=== PATIENT | male | born 1995 | race African-American/Black ===

== ENCOUNTER 2017-05-24 13:58 | Emergency (ER) | payer SELFPAY ==
[2017-05-24 14:00] VITALS: BP 130/84; PULSE 82; RESP 20; TEMP 98.5; O2SAT 97
[2017-05-24] MEDS ORDERED: CLINDAMYCIN PHOS 600 MG/4 ML VIAL IM ONE (14:45)
--- NOTE | 2017-05-24 14:45 | PD ---
HPI Chief Complaint: Oral / Dental Pain or Problem Time Seen by Provider: 14:33 Travel History International Travel<30 days: No Contact w/Intl Traveler<30days: No Traveled to known affect area: No History of Present Illness HPI C/O LEFT BOTTOM TOOTHACHE , 04/20, ONSET 2DAYS AGO, WORSENING OVER TIME, DENIES ANY ALLEVIATING/AGGRAVATING FACTORS PFSH Past Medical History Asthma: Yes Inguinal Hernia: Yes Influenza Vaccination: No Past Surgical History Abdominal Surgery: Yes Genitourinary Surgery: Yes (INGUINAL HERNIA SURGERY) Other Surgery: Yes (JAW SURGERY) Social History Alcohol Use: Yes (OCCASIONALLY) Tobacco Use: Yes (BLACK & MILDS) Substance Use: No Allergies-Medications (Allergen,Severity, Reaction): Coded Allergies: No Known Allergies (Unverified , 05/24/17) Reported Meds & Prescriptions Reported Meds & Active Scripts Active No Active Prescriptions or Reported Medications Review of Systems Except as stated in HPI: all other systems reviewed are Neg HENT: Positive: Dental Difficulties Physical Exam Narrative GENERAL: SKIN: Warm and dry. HEAD: Atraumatic. Normocephalic. EYES: Pupils equal and round. No scleral icterus. No injection or drainage. ENT: No nasal bleeding or discharge. Mucous membranes pink and moist. LEFT MANDIBULAR MOLAR2 INFECTION WITH EARLY EXTENSION TO LEFT CHEEK NECK: Trachea midline. No JVD. CARDIOVASCULAR: Regular rate and rhythm. RESPIRATORY: No accessory muscle use. Clear to auscultation. Breath sounds equal bilaterally. GASTROINTESTINAL: Abdomen soft, non-tender, nondistended. Hepatic and splenic margins not palpable. MUSCULOSKELETAL: Extremities without clubbing, cyanosis, or edema. No obvious deformities. NEUROLOGICAL: Awake and alert. No obvious cranial nerve deficits. Motor grossly within normal limits. Five out of 5 muscle strength in the arms and legs. Normal speech. PSYCHIATRIC: Appropriate mood and affect; insight and judgment normal. Data Data Last Documented VS Vital Signs Date Time Temp Pulse Resp B/P Pulse Ox O2 Delivery O2 Flow Rate FiO2 05/24/17 14:00 98.5 82 20 130/84 97 Room Air Orders Clindamycin Inj (Cleocin Inj) (05/24/17 14:45) MDM Medical Decision Making Medical Screen Exam Complete: Yes Emergency Medical Condition: Yes Medical Record Reviewed: Yes Differential Diagnosis DENTAL ABSCESS V DENTAL CARIES V FACIAL CELLULITIS NONODONTOGENIC Narrative Course PATIENT SEEN AND NOTED TO BE NEGATIVE FOR DENTAL CARIES, OR ODONTOGENIC FACIAL ABSCESS AT THIS POINT. WILL REFER TO DENTIST WHILE HE RECEIVES AN IM ABX Diagnosis Primary Impression: Dental abscess Additional Instructions: PLEASE CALL THE FOLLOWING [phone] EXT:[id number] FOR DENTAL CARE Scripts Amoxicillin 500 Mg [id number] Mg PO BID #20 TAB Ref 0 Prov:Ace Barbosa MD 05/24/17 Tramadol (Ultram)50 Mg Tab50 Mg PO Q4H PRN (PAIN) #28 TAB Prov:Ace Barbosa MD 05/24/17 Disposition: 01 DISCHARGE HOME Condition: Stable Ace Barbosa MD May 24, 2017 14:45
[2017-05-24] MEDS ORDERED: ULTR50TA5 PO (14:51)
[2017-05-24] MEDS ORDERED: AMOX500T PO (14:51)
== END 2017-05-24 15:45 | disposition home or self-care (01) ==
LOC: NEPD 13:58
DX: K04.7 Periapical abscess without sinus (principal); Z72.0 Tobacco use
CPT/HCPCS: 99284